=== PATIENT | female | born 1930 | race Caucasian/White ===

== ENCOUNTER 2020-04-01 17:25 | Emergency (ER) | payer OTHER, MEDICAID, SELFPAY ==
[~2020-04-01] VITALS: Ht 157.5 cm; Wt 63.5 kg
--- NOTE | 2020-04-01 17:25 | NUR ---
Patient to ER bed Hallway for evaluation. Side rails up.
--- NOTE | 2020-04-01 17:30 | NUR ---
Pt bib EMS from [facility] for medical clearance to be admitted to [facility]. Pt has become increasingly aggressive towards staff and more confused. V/S stable, pt is afebrile. Currently resting in [facility], will continue to monitor.
[2020-04-01 17:46] VITALS: BP_SYST 134
--- NOTE | 2020-04-01 17:50 | NUR ---
Nasal swab obtained to r/o Covid. Pt tolerated well.
--- NOTE | 2020-04-01 17:58 | NUR ---
Pt refusing to give urine sample and refusing catheter. Called Hazel at [facility], she stated it was ok to send pt without urine. Dr. Prashant johnston.
--- NOTE | 2020-04-01 18:10 | NUR ---
Lab at bedside for blood draw.
[2020-04-01 18:35] LABS: BASOPHILS % (AUTO) 0.7 % (0.0-2.0); EOSINOPHILS # (AUTO) 0.2 K/uL (0.0-0.4); EOSINOPHILS % (AUTO) 3.4 % (0.0-4.0); HEMATOCRIT 32.1 % (36-48); HEMOGLOBIN 10.8 g/dL (12.0-16.0); LYMPHOCYTES # (AUTO) 2.2 K/uL (1.0-5.5); LYMPHOCYTES % (AUTO) 47.2 % (20.5-51.5); MEAN CORPUSCULAR HEMOGLOBIN 32 pg (27-31); MEAN CORPUSCULAR HGB CONC 34 % (32-36); MEAN CORPUSCULAR VOLUME 94 fL (79.0-98.0); MONOCYTES # (AUTO) 0.3 K/uL (0.0-1.0); MONOCYTES % (AUTO) 6.7 % (1.7-9.3); NEUTROPHILS # (AUTO) 1.9 K/uL (1.8-7.7); PLATELET COUNT (AUTO) 197 K/uL (130-430); RED CELL DISTRIBUTION WIDTH 14.1 % (9.0-15.0); WHITE BLOOD COUNT (AUTO) 4.6 K/uL (4.8-10.8)
[2020-04-01 18:44] LABS: ANION GAP 5 (5-15); CALCIUM 8.8 mg/dL (8.4-11.0); CHLORIDE 106 mmol/L (98-107); CREATININE 0.83 mg/dL (0.55-1.30); GLUCOSE 128 mg/dL (70-99); POTASSIUM 4.1 mmol/L (3.5-5.1); SODIUM SERUM 141 mmol/L (136-145); UREA NITROGEN, BLOOD 18 mg/dL (8-21)
[2020-04-01 18:50] LABS: ALANINE AMINOTRANSFERASE 23 U/L (12-78); ALBUMIN 3.1 g/dL (3.4-4.8); ASPARTATE AMINOTRANSFERASE 12 U/L (10-37); TOTAL BILIRUBIN 0.3 mg/dL (0.0-1.0)
[2020-04-01 18:51] LABS: ACETAMINOPHEN < 1 ug/mL (1-30); ALCOHOL, BLOOD < 3 mg/dL (<10)
[2020-04-01 18:52] LABS: CHOLESTEROL 146 mg/dL (<200); HDL CHOLESTEROL 50 mg/dL (>55); LDL CHOLESTEROL 77 mg/dL (<100); TRIGLYCERIDES 93 mg/dL (30-150)
--- NOTE | 2020-04-01 19:07 | NUR ---
Care of patient endorsed to JOLANTA Resendez. Pt currently waiting in [facility]. No distress noted.
--- NOTE | 2020-04-01 19:10 | NUR ---
Report received from JOLANTA Ruiz for continuation of care.
[2020-04-01 19:29] VITALS: BP_SYST 134
--- NOTE | 2020-04-01 19:29 | NUR ---
Patient given written and verbal discharge instructions and verbalizes understanding. ER MD discussed with patient the results and treatment provided. Patient in stable condition. ID arm band removed. Patient educated on pain management and to follow up with PMD. Opportunity for questions provided and answered. Medication side effect fact sheet provided.
--- NOTE | 2020-04-01 19:32 | NUR ---
Report called to ADRIAN JAMES took report. No other concerns.
== END 2020-04-01 19:29 ==
LOC: SED 17:25
DX: R45.6 Violent behavior (principal); F03.90 Unspecified dementia, unspecified severity, without behavioral disturbance, psychotic disturbance, mood disturbance, and anxiety; F32.9 Major depressive disorder, single episode, unspecified; Z20.828 Contact with and (suspected) exposure to other viral communicable diseases
CPT/HCPCS: 36415; 80053; 80061; 83036; 85025; 87081; 87426; 99285; G0480; G0481; G0482

== ENCOUNTER 2020-08-13 19:43 | Emergency (ER) | payer OTHER, MEDICAID, SELFPAY ==
[~2020-08-13] VITALS: Ht 172.7 cm; Wt 59.0 kg
[2020-08-13 19:55] VITALS: BP_SYST 121
[2020-08-13 20:34] LABS: BASOPHILS % (AUTO) 0.4 % (0.0-2.0); EOSINOPHILS % (AUTO) 0.7 % (0.0-4.0); HEMATOCRIT 38.6 % (36-48); LYMPHOCYTES # (AUTO) 2.1 K/uL (1.0-5.5); LYMPHOCYTES % (AUTO) 28.6 % (20.5-51.5); MEAN CORPUSCULAR HEMOGLOBIN 32 pg (27-31); MEAN CORPUSCULAR HGB CONC 34 % (32-36); MEAN CORPUSCULAR VOLUME 94 fL (79.0-98.0); MONOCYTES # (AUTO) 0.3 K/uL (0.0-1.0); MONOCYTES % (AUTO) 4.6 % (1.7-9.3); NEUTROPHILS # (AUTO) 4.7 K/uL (1.8-7.7); NEUTROPHILS % (AUTO) 65.7 % (40.0-70.0); PLATELET COUNT (AUTO) 223 K/uL (130-430); RED BLOOD CELL COUNT(AUTO) 4.12 MIL/uL (4.2-6.2); RED CELL DISTRIBUTION WIDTH 14.1 % (9.0-15.0); WHITE BLOOD COUNT (AUTO) 7.2 K/uL (4.8-10.8)
[2020-08-13 21:03] LABS: ANION GAP 6 (5-15); CALCIUM 9.4 mg/dL (8.4-11.0); CHLORIDE 104 mmol/L (98-107); CREATININE 0.69 mg/dL (0.55-1.30); GLUCOSE 94 mg/dL (70-99); POTASSIUM 3.8 mmol/L (3.5-5.1); SODIUM SERUM 139 mmol/L (136-145); UREA NITROGEN, BLOOD 19 mg/dL (8-21)
[2020-08-13 21:08] LABS: CHOLESTEROL 164 mg/dL (<200); TRIGLYCERIDES 92 mg/dL (30-150)
[2020-08-13 21:09] LABS: HDL CHOLESTEROL 49 mg/dL (>55); LDL CHOLESTEROL 97 mg/dL (<100)
[2020-08-13 21:11] LABS: ALANINE AMINOTRANSFERASE 62 U/L (12-78); ASPARTATE AMINOTRANSFERASE 29 U/L (10-37); TOTAL BILIRUBIN 0.5 mg/dL (0.0-1.0)
[2020-08-13 21:14] LABS: ACETAMINOPHEN < 1 ug/mL (1-30); ALCOHOL, BLOOD < 3 mg/dL (<10)
[2020-08-13] MEDS ORDERED: NACL 0.9% 1,000 ML IV ONE (21:45)
[2020-08-14 00:07] VITALS: BP_SYST 116
== END 2020-08-14 00:07 | disposition psychiatric hospital, planned readmission (93) ==
LOC: SED 19:43
DX: F03.90 Unspecified dementia, unspecified severity, without behavioral disturbance, psychotic disturbance, mood disturbance, and anxiety (principal); F20.9 Schizophrenia, unspecified; F31.9 Bipolar disorder, unspecified; Z88.0 Allergy status to penicillin; Z20.822 Contact with and (suspected) exposure to COVID-19
CPT/HCPCS: 36415; 80053; 80061; 83036; 85025; 87081; 87426; 93005; 96360; 99285; G0480; G0481; G0482; J7030